=== PATIENT | male | born 1975 | race Caucasian/White ===

== ENCOUNTER 2024-02-19 15:04 | Emergency (ER) | payer BC ==
[~2024-02-19] VITALS: Ht 190.5 cm; Wt 150.0 kg
[2024-02-19 15:12] VITALS: TEMP 98.2
[2024-02-19] MEDS ORDERED: Tdap Vaccine 0.5 ML SYRINGE IM ONE (19:00)
[2024-02-19 20:02] VITALS: BP 144/70; PULSE 64
== END 2024-02-19 20:00 | disposition home or self-care (01) ==
LOC: COL.ER 15:04
DX: S61.217A Laceration without foreign body of left little finger without damage to nail, initial encounter (principal); W29.3XXA Contact with powered garden and outdoor hand tools and machinery, initial encounter